=== PATIENT | female | born 1935 | race Caucasian/White ===

== ENCOUNTER 2017-02-21 17:56 | Emergency (ER) | payer MEDICARE, MEDICAID ==
[~2017-02-21] VITALS: Ht 154.9 cm; Wt 70.8 kg
[2017-02-21 17:56] VITALS: BP_SYST 164
[2017-02-21] MEDS ORDERED: KETOROLAC TROMETHAMINE 30 MG VIAL IVP ONE (18:30)
[2017-02-21] MEDS ORDERED: CEFAZOLIN 1 GM IVPB PREMIX 50 ML IV ONE (18:30)
[2017-02-21] MEDS ORDERED: HYDROmorphone 1 MG INJ. 1 MG/ML AMPUL IVP ONE ×2 (18:30→20:15)
[2017-02-21] MEDS ORDERED: ACETAMINOPHEN 500 MG TABLET PO ONE (18:30)
[2017-02-21] MEDS ORDERED: ONDANSETRON HCL 4 MG/2 ML VIAL IVP ONE (19:30)
[2017-02-21] MEDS ORDERED: DIPHENHYDRAMINE INJ 50 MG/ML VIAL IVP ONE (19:30)
[2017-02-21 19:41] LABS: ANION GAP 7 (5-15); CALCIUM 8.8 mg/dL (8.4-11.0); CHLORIDE 99 mmol/L (98-107); CREATININE 0.76 mg/dL (0.55-1.30); GLUCOSE 133 mg/dL (70-99); HEMATOCRIT 39.1 % (36-48); HEMOGLOBIN 12.3 g/dL (12.0-16.0); MEAN CORPUSCULAR HEMOGLOBIN 20 pg (27-31); MEAN CORPUSCULAR VOLUME 65 fL (79.0-98.0); POTASSIUM 4.4 mmol/L (3.5-5.1); RED BLOOD CELL COUNT(AUTO) 6.02 MIL/uL (4.2-6.2); SODIUM SERUM 131 mmol/L (136-145); UREA NITROGEN, BLOOD 12 mg/dL (8-21); WHITE BLOOD COUNT (AUTO) 11.2 K/uL (4.8-10.8)
[2017-02-21 19:42] LABS: MEAN CORPUSCULAR HGB CONC 31 % (32-36); PLATELET COUNT (AUTO) 276 K/uL (130-430); RED CELL DISTRIBUTION WIDTH 16.5 % (9.0-15.0)
[2017-02-21 19:45] LABS: ALANINE AMINOTRANSFERASE 23 U/L (12-78); ALBUMIN 3.6 g/dL (3.4-4.8); ASPARTATE AMINOTRANSFERASE 27 U/L (10-37); LIPASE 233 U/L (73-393); PROTHROMBIN TIME 10.6 SECS (9.5-12.5); TOTAL BILIRUBIN 0.7 mg/dL (0.0-1.0)
[2017-02-21 20:03] LABS: BAND % (MANUAL) 2 % (0-6); LYMPHOCYTES % (MANUAL) 19 % (20-46)
[2017-02-21 20:04] LABS: BASOPHILS % (MANUAL) 0 % (0-2); EOSINOPHILS % (MANUAL) 0 % (0-7); MONOCYTES % (MANUAL) 6 % (0-11)
[2017-02-21 21:08] LABS: BILIRUBIN,URINE NEGATIVE (NEGATIVE); BLOOD, URINE NEGATIVE (NEGATIVE); CLARITY/URINE SL HAZY (CLEAR); COLOR,URINE YELLOW (YELLOW); GLUCOSE,URINE NEGATIVE (NEGATIVE); KETONES,URINE NEGATIVE (NEGATIVE); LEUKOCYTE ESTERASE ,URINE NEGATIVE (NEGATIVE); NITRITE, URINE NEGATIVE (NEGATIVE); PH,URINE 7.5 (5.0-8.0); PROTEIN URINE NEGATIVE (NEGATIVE); UROBILINOGEN,URINE 0.2 (0.2-1.0)
[2017-02-21 21:59] VITALS: BP_SYST 113
== END 2017-02-21 21:59 | disposition home or self-care (01) ==
LOC: SED 17:56
DX: M75.02 Adhesive capsulitis of left shoulder (principal); M19.012 Primary osteoarthritis, left shoulder; M84.422A Pathological fracture, left humerus, initial encounter for fracture; I10 Essential (primary) hypertension; F32.9 Major depressive disorder, single episode, unspecified
CPT/HCPCS: 36415; 71010; 73030; 80053; 81003; 83605; 83690; 85007; 85027; 85610; 87040; 93005; 96365; 96374; 96375; 96376; 99285; J0690; J1170; J1200; J1885; J2405